=== PATIENT | female | born 1950 | race Caucasian/White ===

== ENCOUNTER 2021-10-06 08:11 | Outpatient (CLI) | payer MEDICARE, BC, SELFPAY ==
[2021-10-06 10:04] LABS: Iron* 52 ug/dL (37-170)
[2021-10-06 10:05] LABS: Chloride* 95 mmol/L (96-114)
[2021-10-06 10:06] LABS: Albumin* 4.2 g/dL (3.3-5.0); Potassium* 4.1 mmol/L (3.6-5.1); Sodium* 127 mmol/L (135-149)
[2021-10-06 10:08] LABS: Carbon Dioxide* 24 mmol/L (20-32); Creatinine* 7.2 mg/dL (0.5-1.5)
[2021-10-06 10:09] LABS: Blood Urea Nitrogen* 50 mg/dL (7-30); Calcium* 9.6 mg/dL (8.4-10.6); Glucose* 104 mg/dL (60-115); Phosphorus* 4.2 mg/dL (2.5-4.5)
[2021-10-06 10:14] LABS: Percent Iron Saturation 17 % (20-50); Total Iron Binding Capacity 309 ug/dL (265-497)
[2021-10-06 10:16] LABS: Creatinine Urine 57.3 mg/dL
[2021-10-06 10:25] LABS: Uric Acid* 6.6 mg/dL (2.2-8.4)
[2021-10-06 12:52] LABS: Microalbumin Creatinine Ratio 1110 mg/g (0-30); Microalbumin Urine 64 mg/dL
[2021-10-06 14:42] LABS: Ferritin* 86.7 ng/mL (11.1-264.0)
== END 2021-10-06 08:12 | disposition home or self-care (01) ==
PROVIDERS: Visit Provider Internal Medicine Nephrology
DX: N18.5 Chronic kidney disease, stage 5 (principal); D64.9 Anemia, unspecified; I10 Essential (primary) hypertension
CPT/HCPCS: 80069; 82043; 82310; 82570; 82728; 83540; 83550; 83970; 84550; 87086

== ENCOUNTER 2021-10-16 14:39 | Observation (INO) | payer MEDICARE, BC, SELFPAY ==
[2021-10-16] VITALS (9 sets, daily range): BP systolic 106–138; BP diastolic 60–80; PULSE 60–94; RESP 18–20; TEMP 36.2–36.6; O2SAT 91–95; BMI 23.7; BMI 23.8
--- NOTE | 2021-10-16 15:57 | CRLHL7_ITS ---
For Patients: As a result of the Cures Act, medical imaging exams and procedure reports are released immediately into your electronic medical record. You may view this report before your referring provider. If you have questions, please contact your health care provider. INDICATION: Edema, renal failure. TECHNIQUE: Chest 1 views. COMPARISON: January 02, 2021. FINDINGS: Cardiovascular and mediastinum: Heart size and vasculature are normal in caliber and appearance. Lungs and pleural spaces: Lungs are clear. No sign of pleural effusion. No pneumothorax. Bones and soft tissues: No significant findings. IMPRESSION: No acute findings and no significant changes from the prior exam. Dictated by Mehul Chiu MD @ 10/16/2021 4:50:11 PM (Electronically Signed)
--- NOTE | 2021-10-16 16:13 | ED.SOB ---
HPI - SOB/Dyspnea General Time Seen by Provider: 16:13 Date Seen: 10/16/21 Chief Complaint: Unspecified Complaint, Adult Stated Complaint: Kidneys are failing Time Seen by Provider: 10/16/21 15:54 Source: patient, family (Sister is present), RN notes reviewed and other (Note sent from Dr. Haro) Mode of arrival: ambulatory Limitations: no limitations History of Present Illness HPI Narrative: This 71-year-old female is coming into the ER feeling weak and fatigued, short of breath, lower extremity swelling in the setting of chronic kidney disease. She started metolazone last Tuesday on top of her Lasix. She took it Tuesday and Tuesday of this week but by Tuesday she developed a rash and was itchy. She has not taken another dose and this itchiness and rash is gone away. Dr. Haro her bus assistant has labeled this in allergy. 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 She did not respond to this treatment and her renal function is failed to deteriorate. He did see her last week and felt her to be quite volume overloaded and did initiate the metolazone for that reason. The patient sounded like she was breathless to him he wanted her evaluated. She notably is also the primary care provider for a frail that she lives with. He is worried that she may need to start dialysis. MD elicited complaint: shortness of breath and cough (Primarily dry) Pertinent past history: other (Chronic kidney disease) Onset (ago): day(s) Timing: progressively worsening Related Data Home oxygen amount: none Home Medications Medication Instructions Recorded Confirmed amlodipine 5 mg tablet mg PO DAILY 09/30/21 09/30/21 carvedilol 12.5 mg tablet mg PO BID 09/30/21 09/30/21 clonidine HCl 0.1 mg tablet mg PO .Bedtime 09/30/21 09/30/21 furosemide 20 mg tablet mg PO DAILY 09/30/21 09/30/21 albuterol sulfate 90 mcg/actuation 2 inh INHALATION BID ea 10/06/21 10/06/21 breath activated powder inhaler Allergies Allergy/AdvReac Type Severity Reaction Status Date / Time sevelamer Allergy Intermediate Rash Verified 09/30/21 15:37 latex Allergy Mild Rash Verified 09/30/21 15:37 Review of Systems Status of ROS: Reports: 10 or more systems reviewed and unremarkable except as noted in History and below [facility] Medical History (Updated 10/16/21 @ 18:07 by Deepti Ramirez MD) CKD (chronic kidney disease) Hypertension Surgical History (Updated 10/16/21 @ 16:42 by Zehra Doshi RN) History of cholecystectomy History of tonsillectomy Social History Smoking Status: Former smoker How often do you have a drink containing alcohol: never AUDIT-C Alcohol total score: 0 Non-prescribed substance use: denies use Exam Const: Vital Signs, click to edit/add: Vital Signs - 24 hr 10/16/21 14:56 10/16/21 16:43 10/16/21 17:00 Temperature 97.2 F L Pulse Rate [Right Pulse Oximeter] 94 61 Respiratory Rate 20 20 Blood Pressure [Ri ght Upper Arm] 130/75 124/69 132/80 Pulse Oximetry 94 93 92 10/16/21 17:30 Temperature Pulse Rate [Right Pulse Oximeter] 65 Respiratory Rate Blood Pressure [Ri ght Upper Arm] 138/70 Pulse Oximetry 92 Documenting provider has reviewed patient's vital signs: yes Common normals: no apparent distress, average body habitus, oriented x3, no limitations, healthy appearing and alert General appearance: cooperative and comfortable Nutritional appearance: thin Orientation/consciousness: Yes awake HENMT: Common normals: normocephalic, head/scalp atraumatic, hearing grossly normal bilaterally, external ears normal, external nose normal, nasal mucous membranes and turbinates normal, moist oral mucous membranes and oropharynx normal Head and scalp: normocephalic and atraumatic Nose: external nose normal and nasal mucous membranes and turbinates normal External ear: external ears normal Eye: Common normals: PERRL, EOMs intact bilaterally, conjunctivae normal and no scleral icterus Conjunctiva: conjunctiva(e) normal Pupil: PERRL Neck & C-Spine: Common normals: full ROM, no lymphadenopathy, supple and thyroid normal Thyroid: thyroid normal Resp: Common normals: normal respiratory effort, no retractions and no use of accessory muscles Effort & inspection: able to speak in complete sentences Auscultation: crackles (Right base) and rhonchi ([place] right mid lung field) Cardio: Common normals: regular rate, regular rhythm, S1 normal heart sound, S2 normal heart sound, no gallops, no clicks and no murmurs Rate: regular rate Rhythm: regular rhythm Heart sounds: S1 normal and S2 normal GI: Common normals: Normal to inspection, nondistended, normoactive bowel sounds present, soft to palpation, non-tender, no hepatosplenomegaly and no masses Palpation: soft and no hepatosplenomegaly Extremity: General: edema (Definite bilateral pedal edema, mild 1 to 2+ pretibial about midway tibia) Neuro: Common normals: oriented x3 Sensorium/orientation: awake and alert Course Consultations Consultation #1: Spoke with Dr. Haro regarding patient's labs. He recommended that we get a urine osmolality and a random urine sodium to help decipher whether or not her kidneys are perceiving her being dry or not. He did recommend that we could probably do a 500 mL bolus of D5 half-normal saline with 20 mEq potassium over 4 hours. He felt she would likely respond IV Lasix if we did need to this. With her sodium and potassium being low though, it would seem that the metolazone did work and she has had electrolyte changes from this. I have subsequently spoken to our hospitalist who will be assuming care. I do have an EKG pending. She may also need some oral effervescent potassium. Will talk to the hospitalists when she is down here. Time: 17:32 Vital Signs Vital signs: Initial Vital Signs Temperature 97.2 F L 10/16/21 14:56 Temperature Source Temporal Artery Scan 10/16/21 14:56 Pulse Rate 94 10/16/21 14:56 Respiratory Rate 20 10/16/21 14:56 Blood Pressure 130/75 10/16/21 14:56 Blood Pressure Mean 93 10/16/21 14:56 Blood Pressure Position Sitting 10/16/21 14:56 Pulse Oximetry 94 10/16/21 14:56 Oxygen Delivery Method 10/16/21 14:56 Vital Signs Temperature 97.2 F L 10/16/21 14:56 Pulse Rate 94 10/16/21 14:56 Respiratory Rate 20 10/16/21 14:56 Blood Pressure 130/75 10/16/21 14:56 Pulse Oximetry 94 10/16/21 14:56 Temperature 97.2 F L 10/16/21 14:56 Pulse Rate 65 10/16/21 17:30 Respiratory Rate 20 10/16/21 16:43 Blood Pressure 138/70 10/16/21 17:30 Pulse Oximetry 92 10/16/21 17:30 MDM - SOB/Dyspnea Lab Data Attestation: I reviewed the patient's lab results. Labs: Lab Results 10/16/21 10/16/21 10/16/21 Range/Units 15:57 16:26 16:26 WBC 5.60 (4.50-11.00) K/uL RBC 3.40 L (4.00-5.20) m/uL Hgb 10.6 L (12.0-16.0) gm/dL Hct 28.8 L (33.0-51.0) % MCV 85 (80-100) fL MCH 31 (26-34) pg MCHC 37 H (32-36) gm/dL RDW Coeff of [place] 11.4 L (11.5-15.5) % Plt Count 296 (140-440) K/uL Neut % (Auto) 70.7 (42.0-72.0) % Lymph % (Auto) 14.8 L (20-44) % [place] % (Auto) 10.7 (0.0-11.0) % Eos % (Auto) 3.2 (0.0-7.0) % Baso % (Auto) 0.4 (0.0-3.0) % Neut # (Auto) 3.96 (1.7-7.0) K/uL Lymph # (Auto) 0.80 L (0.90-2.90) K/uL [place] # (Auto) 0.60 (0.00-0.90) K/UL Eos # (Auto) 0.18 (0.00-0.50) K/uL Baso # (Auto) 0.02 (0.00-0.30) K/uL Abs Immat Gran (auto) 0.01 (0.00-0.30) K/uL Sodium 115 L* (135-149) mmol/L Potassium 2.9 L* (3.6-5.1) mmol/L Chloride 78 L (96-114) mmol/L Carbon Dioxide 26 (20-32) mmol/L BUN 59 H (7-30) mg/dL Creatinine 7.5 H (0.5-1.5) mg/dL Estimated Creat Clear 5.61 Estimated GFR 5 ml/min Glucose 111 (60-115) mg/dL Calcium 9.1 (8.4-10.6) mg/dL Phosphorus 5.0 H (2.5-4.5) mg/dL Magnesium 4.1 H* (1.5-2.6) mg/dL Total Bilirubin 0.6 (0.1-1.5) mg/dL AST 26 (12-35) U/L ALT 15 (4-35) U/L Alkaline Phosphatase 145 (40-150) U/L Troponin I 0.01 (0.01-0.04) ng/mL NT-Pro-B Natriuret Pep 3950 H (0-125) PG/mL Total Protein 7.5 (6.0-8.3) g/dL Albumin 4.3 (3.3-5.0) g/dL SARS-CoV-2 (PCR) Negative SARS-CoV-2 (Negative) Imaging Data Chest x-ray: Attestation: I have reviewed the pertinent imaging results. My impression: My preliminary review of her portable chest x-ray reveals no acute pulmonary congestion. Radiologist's impression: Patient: [facility] Facility:?[facility] Patient ID:?[id number] Site Patient ID:?[id number]. Site :?[id number] Study:?XRay Chest PORTABLE-10/16/2021 4:16:12 PM Ordering Physician:Ge Tatum Final Report: INDICATION: Edema, renal failure. TECHNIQUE: Chest 1 views. COMPARISON: January 02, 2021. FINDINGS: Cardiovascular and mediastinum: Heart size and vasculature are normal in caliber and appearance. Lungs and pleural spaces: Lungs are clear. No sign of pleural effusion. No pneumothorax. Bones and soft tissues: No significant findings. IMPRESSION: No acute findings and no significant changes from the prior exam. Dictated by Mehul Chiu MD @ 10/16/2021 4:50:11 PM (Electronic Signature) ECG Data Attestation: I personally reviewed and interpreted this ECG as follows: (Sinus rhythm, 63 beats per minute. Premature supraventricular complexes. There is significant artifact baseline on this EKG. QT corrected is 534 milliseconds.) ECG interpretation date: 10/16/21 ECG interpretation time: 18:18 Core Measures Measure exclusions: not indicated Critical Care Time Critical Care Time Critical Care Time: No Discharge Plan Discharge Clinical Impression: Hypokalemia, Stage 5 chronic kidney disease, Hyponatremia Patient Disposition: Admitted As Inpatient Condition: Unchanged
[2021-10-16 16:37] LABS: Basophils Absolute Auto 0.02 K/uL (0.00-0.30); Basophils Percent Auto 0.4 % (0.0-3.0); Eosinophils Absolute Auto 0.18 K/uL (0.00-0.50); Eosinophils Percent Auto 3.2 % (0.0-7.0); Hematocrit 28.8 % (33.0-51.0); Hemoglobin* 10.6 gm/dL (12.0-16.0); Immature Granulocytes Abs Auto 0.01 K/uL (0.00-0.30); Lymphocytes Percent Auto 14.8 % (20-44); Mean Corpuscular HGB Conc 37 gm/dL (32-36); Mean Corpuscular Hemoglobin 31 pg (26-34); Mean Corpuscular Volume 85 fL (80-100); Monocytes Percent Auto 10.7 % (0.0-11.0); Neutrophils Absolute Auto 3.96 K/uL (1.7-7.0); Neutrophils Percent Auto 70.7 % (42.0-72.0); Platelet Count* 296 K/uL (140-440); RDW Coefficient of Variation % 11.4 % (11.5-15.5)
[2021-10-16 16:43] LABS: Slide Review Reflex No
[2021-10-16 16:47] LABS: Albumin* 4.3 g/dL (3.3-5.0); Chloride* 78 mmol/L (96-114)
[2021-10-16 16:49] LABS: Creatinine* 7.5 mg/dL (0.5-1.5); Est. Creatinine Clearance* 5.61; Estimated Glomerular Filt Rate 5 ml/min
[2021-10-16 16:50] LABS: Alanine Aminotransferase* 15 U/L (4-35); Alkaline Phosphatase* 145 U/L (40-150); Aspartate Amino Transferase* 26 U/L (12-35); Bilirubin Total* 0.6 mg/dL (0.1-1.5); Blood Urea Nitrogen* 59 mg/dL (7-30); Carbon Dioxide* 26 mmol/L (20-32); Glucose* 111 mg/dL (60-115); Total Protein* 7.5 g/dL (6.0-8.3)
[2021-10-16 16:51] LABS: Calcium* 9.1 mg/dL (8.4-10.6)
[2021-10-16 16:59] LABS: NT Pro B Type NatriureticPept* 3950 PG/mL (0-125)
[2021-10-16 17:02] LABS: Magnesium* 4.1 mg/dL (1.5-2.6); Troponin I* 0.01 ng/mL (0.01-0.04)
[2021-10-16 17:03] LABS: Potassium* 2.9 mmol/L (3.6-5.1); Sodium* 115 mmol/L (135-149)
--- NOTE | 2021-10-16 17:03 | ED.NURSE ---
Dr Lerma updated on critical sodium, potassium and magnesium results
[2021-10-16 17:32] LABS: SARS PCR* Negative SARS-CoV-2 (Negative)
--- NOTE | 2021-10-16 17:49 | P.IMHP_ITS ---
Hospitalist- H&P: HPI History of Present Illness Date Seen: 10/16/21 Chief complaint: Kidneys are failing Narrative: Gem Whitlock is a 71 year old female who presented to the ED with her sister for feeling poorly - progressive weakness and fatigue, in addition to dyspnea. Her past medical history is notable for stage 5 chronic kidney disease secondary to ANCA vasculitis. Her loft worker head is Dr. Haro from the [facility]. She saw him last week, and he added metolazone thrice weekly to her diuretic regimen. Upon starting the medication, she felt more itching of her lower extremities. She did not note any skin changes or rashes with itching. She also felt somewhat nauseous on this medication. She called Dr. Haro, who asked her to stop metolazone and to present to the ER for lab work. They have been discussing transition to dialysis as an outpatient. ER course and findings: - sodium of 115 (127 10 days ago) - potassium of 2.7 - creatinine of 7.5 (7.2 10 days ago) - elevated phosphorus and magnesium Dr. Lerma in the ED discussed the case with Dr. Haro, who recommends admitting the patient to the hospital and slowly hydrating her with close monitoring. An attempt was made to transfer patient to the [facility], but there unfortunately on divert. In addition to ANCA vasculitis and stage 5 chronic kidney disease, patient also has hypertension. Her PCP Dr. Mason at [facility] ([facility]). Has had tonsillectomy and cholecystectomy. 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 Retired. 2 adult daughters. Former smoker, quit within the year, does still occasionally smoke when under stress. No ETOH use. Review of Systems Status of ROS: Reports: 10 or more systems reviewed and unremarkable except as noted in History and below Narrative: Fatigued, decreased appetite over the past week. Intermittent dizzines. No syncope or falls. No headache. No skin changes at this time (no notable rash when skin was itching while on Metolazone). No urinary complaints, makes urine. No melena or GI complaints. Last colonoscopy was in 2020. [facility] Medical History (Updated 10/16/21 @ 18:07 by Deepti Ramirez MD) CKD (chronic kidney disease) Hypertension Surgical History (Updated 10/16/21 @ 16:42 by Zehra Doshi RN) History of cholecystectomy History of tonsillectomy Social History Smoking Status: Former smoker How often do you have a drink containing alcohol: never AUDIT-C Alcohol total score: 0 Non-prescribed substance use: denies use Caffeine: Yes service: No Meds Home Medications and Allergies Home Medications Medication Instructions Recorded Confirmed Type amlodipine 5 mg tablet mg PO DAILY 09/30/21 09/30/21 History carvedilol 12.5 mg tablet mg PO BID 09/30/21 09/30/21 History clonidine HCl 0.1 mg tablet mg PO .Bedtime 09/30/21 09/30/21 History furosemide 20 mg tablet mg PO DAILY 09/30/21 09/30/21 History albuterol sulfate 90 mcg/actuation 2 inh INHALATION BID ea 10/06/21 10/06/21 History breath activated powder inhaler Allergies Allergy/AdvReac Type Severity Reaction Status Date / Time sevelamer Allergy Intermediate Rash Verified 09/30/21 15:37 latex Allergy Mild Rash Verified 09/30/21 15:37 Exam Narrative: Exam Narrative: GEN: Alert and oriented, answering questions appropriately HEENT: Normal external ears, EOMIs bilaterally, no scleral icterus, mild conjunctival pallor CV: RRR, No concerning murmurs, rubs, or gallops R: LCTA bilaterally without concerning wheezing. Fine bibasilar rales, air movement adequate Ext: wwp, 2+ nonpitting edema bilateral ankles (baseline per patient) Skin: No concerning skin lesions or rashes on exposed skin Neuro: Nonfocal, no resting tremor Psych: Appropriate Const: Vital Signs, click to edit/add: Vital Signs - 24 hr 10/16/21 14:56 10/16/21 16:43 10/16/21 17:00 Temperature 97.2 F L Pulse Rate [Right Pulse Oximeter] 94 61 Respiratory Rate 20 20 Blood Pressure [Ri ght Upper Arm] 130/75 124/69 132/80 Pulse Oximetry 94 93 92 10/16/21 17:30 Temperature Pulse Rate [Right Pulse Oximeter] 65 Respiratory Rate Blood Pressure [Ri ght Upper Arm] 138/70 Pulse Oximetry 92 Hospitalist - H&P: Result Labs Labs: Short CBC 10/16/21 Range/Units 16:26 WBC 5.60 (4.50-11.00) K/uL Hgb 10.6 L (12.0-16.0) gm/dL Hct 28.8 L (33.0-51.0) % Plt Count 296 (140-440) K/uL BMP 10/16/21 16:26 Sodium 115 L* Potassium 2.9 L* Chloride 78 L Carbon Dioxide 26 BUN 59 H Creatinine 7.5 H Glucose 111 Calcium 9.1 Cardiac Enzymes 10/16/21 Range/Units 16:26 Troponin I 0.01 (0.01-0.04) ng/mL Liver Function 10/16/21 Range/Units 16:26 Total Bilirubin 0.6 (0.1-1.5) mg/dL AST 26 (12-35) U/L ALT 15 (4-35) U/L Alkaline Phosphatase 145 (40-150) U/L Albumin 4.3 (3.3-5.0) g/dL Assessment and Plan Assessment and plan (1) Stage 5 chronic kidney disease: Status: Acute (2) Hypertension: Status: Acute (3) Anemia: Status: Acute (4) Hyponatremia: Status: Acute (5) Hypokalemia: Status: Acute (6) Hyperphosphatemia: Status: Acute Plan 71-year-old female with known stage 5 chronic kidney disease, now presents with severe electrolyte abnormalities (presumably iatrogenic from metolazone). Admit to CCU on telemetry. 1. Electrolyte disturbances, severe: Unable to transfer patient to [facility] given lack of bed availability. Per [facility] Specialist Field Engineer, will give 500mL of D5 1/2 NS + 20MeQ of K over 4 hours. Urine Osm and Na pending. Fluid restriction, supplemental sodium tabs, Q4H sodium monitoring overnight. Supplement potassium orally. 2. SHILOH in patient with history of CKD: Continue home medications, follow renal function closely. Patient hopeful that she will be able to discharge home tomorrow with close outpatient f/u, as she is the primary caregiver for her . 3. HTN: Continue home medications. 4. Prophylaxis: SCDs, ambulation. 5. Patient requests Full Code status.
--- NOTE | 2021-10-16 18:15 | W.PC.EDHO ---
Primary Language: Preferred Language: Orientation Status: [x] Alert & Oriented [] Slight Confusion [] Known Dx Dementia Transfers By: x Assist of 1 [] Assist of 2 [] Lift Description of Symptoms ED Triage Present Problem pt referred to ER by Dr Haro for her kidneys, Description pt has been feeling more fatigued with blood pressures being low at times, pt stopped metalozone she is supposed to be taking because she developed hive Female History Patient No Oxygen Administration Pulse Oximetry 92 Pulse Oximetry 92 Pulse Oximetry 93 Pulse Oximetry 94 Oxygen Delivery Method Room Air Oxygen Delivery Method Room Air Oxygen Delivery Method Room Air Oxygen Delivery Method Room Air Cardiac Monitoring EKG Method 12 Lead
[2021-10-16 18:20] LABS: Appearance Urine Clear (Clear); Bilirubin Urine Negative (Negative); Blood Urine 2+ (Negative); Color Urine Yellow (Yellow); Glucose Urine Negative (Negative); Ketones Urine Negative (Negative); Specific Gravity Urine 1.015 (1.000-1.030)
[2021-10-16 18:21] LABS: Leukocyte Esterase Urine Negative (Negative); Nitrite Urine Negative (Negative); Protein Urine 2+ (Negative); Urobilinogen Urine 0.2 (0.2-1.0)
[2021-10-16 18:29] LABS: WBC Urine 0-2 (0-5)
--- NOTE | 2021-10-16 18:33 | ED.NURSE ---
report given to Kar Almodovar RN seismic prospecting supervisor transferred pt to med surg.
[2021-10-16] MEDS: POTASSIUM BICARB 25 MEQ EFFERVESCENT TAB PO ×3 (19:48→22:13)
[2021-10-16] MEDS: cloNIDine HCL 0.1 MG TABLET PO (21:00)
[2021-10-16] MEDS: carvediloL 25 MG TABLET PO (21:00)
[2021-10-16] MEDS: SODIUM CHLORIDE 1 GM TABLET PO (21:01)
[2021-10-16] MEDS: ALBUTEROL INHALER 2 PUFF IH (21:05)
[2021-10-16 22:26] LABS: Potassium* 3.6 mmol/L (3.6-5.1)
[2021-10-16 23:02] LABS: Sodium* 115 mmol/L (135-149)
[2021-10-17] VITALS (10 sets, daily range): BP systolic 113–131; BP diastolic 59–77; PULSE 59–68; RESP 16–22; TEMP 36.1–36.9; O2SAT 91–95
--- NOTE | 2021-10-17 05:53 | PC.NURSE ---
SHIFT NOTE -: Pt A&O, cooperative. Afebrile, oxygen saturations in the low 90's on room air. Reports SOB with exertion that pt states is improved and better at rest. Denies pain, chest pain, and N/V. Up SBA, denies dizziness, reports her weakness is better. Tele reads NSR. Sodium repeat check was 115, Dr. Ledesma aware, no new orders received.
[2021-10-17 07:48] LABS: Basophils Absolute Auto 0.03 K/uL (0.00-0.30); Basophils Percent Auto 0.6 % (0.0-3.0); Eosinophils Absolute Auto 0.22 K/uL (0.00-0.50); Eosinophils Percent Auto 4.1 % (0.0-7.0); Hematocrit 26.1 % (33.0-51.0); Hemoglobin* 9.6 gm/dL (12.0-16.0); Lymphocytes Percent Auto 19.8 % (20-44); Mean Corpuscular HGB Conc 37 gm/dL (32-36); Mean Corpuscular Hemoglobin 32 pg (26-34); Mean Corpuscular Volume 86 fL (80-100); Monocytes Percent Auto 11.9 % (0.0-11.0); Neutrophils Absolute Auto 3.44 K/uL (1.7-7.0); Neutrophils Percent Auto 63.6 % (42.0-72.0); Platelet Count* 283 K/uL (140-440); RDW Coefficient of Variation % 11.4 % (11.5-15.5); Red Blood Count 3.03 m/uL (4.00-5.20)
[2021-10-17 07:53] LABS: Slide Review Reflex No
[2021-10-17 07:58] LABS: Chloride* 82 mmol/L (96-114)
[2021-10-17 07:59] LABS: Potassium* 3.1 mmol/L (3.6-5.1)
[2021-10-17 08:01] LABS: Blood Urea Nitrogen* 60 mg/dL (7-30); Creatinine* 7.1 mg/dL (0.5-1.5); Est. Creatinine Clearance* 5.92; Estimated Glomerular Filt Rate 6 ml/min; Glucose* 90 mg/dL (60-115)
[2021-10-17 08:02] LABS: Calcium* 8.6 mg/dL (8.4-10.6); Magnesium* 3.8 mg/dL (1.5-2.6); Phosphorus* 4.1 mg/dL (2.5-4.5)
[2021-10-17 08:05] LABS: Carbon Dioxide* 28 mmol/L (20-32)
[2021-10-17 08:15] LABS: Sodium* 118 mmol/L (135-149)
--- NOTE | 2021-10-17 08:44 | P.IMPN_ITS ---
Progress Note: A&P Assessment and plan (1) Hyponatremia: Status: Acute Assessment and Plan: Na was 127 earlier this month, 115 yesterday, 118 today. Patient feels better and desires discharge home. She is agreeable to stay if recommended. I will speak with [facility] to discuss plan. I think she may need dialysis sooner since she has failed diuresis due to hyponatremia and has ongoing volume overload. Continue free water restriction as patient does at home. Monitor I/O's, but I will not put in an actual order for fluid restriction because I'd like to see how well she is restricting her own intake. (2) Hypokalemia: Status: Acute Assessment and Plan: Considering advanced renal disease, I will give one dose of postassium for repl acement and recheck before giving more. (3) Hyperphosphatemia: Problem details: secondary to renal disease Status: Acute (4) Hypertension: Status: Acute Assessment and Plan: Fair control for age. Monitor. 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 Haro/[facility], dialysis planning started 10/09/21 Status: Acute Assessment and Plan: Renal diet. Daily BMP while adjusting electrolyte and volume infusion. (6) Volume overload: Problem details: suspected CHF, has not yet had ECHO, treated with metolazone and furosemide, low NA diet, avoiding NSAIDs Status: Acute Assessment and Plan: Obtain ECHO. Discuss case with Nephrology to consider sooner dialysis. (7) Anemia in chronic kidney disease (CKD): Problem details: Baseline Hgb is 10.6. Has been lower in the past. Status: Acute Assessment and Plan: likely lower due to volume overload. No evidence of active bleeding. Continue to monitor. (8) Hyperparathyroidism, secondary renal: Status: Acute Plan VTE prophylaxis with frequent ambulation. Subjective Time Seen by Provider: 08:36 Date Seen: 10/17/21 Interval history: Gem says that she had started conversations with Dr. Haro this month about the possibility of future outpatient hemodialysis. There was no date set for this to start. She was recently started on metolazone. Sometime after that she started having decreased appetite and worsening weakness. Gem tells me she feels much better today. Her appetite has improved and she ate a good breakfast this morning. She continues to have the usual amount of urine output according to her. She had a normal bowel movement this morning. Exam Narrative: Exam Narrative: General: No acute distress. Awake, alert, oriented x3. Mild pallor. No jaundice. Oropharynx: Clear. Mucous membranes moist. Cardiovascular: Regular rate and rhythm. No murmurs, gallops, or rubs. Respiratory: Bibasilar crackles. No wheezing. Abdomen: Bowel sounds present. Soft, nondistended, nontender. Extremities: 2+ bilateral pitting edema of both lower extremities. Const: Vital Signs, click to edit/add: Vital Signs - 24 hr 10/16/21 14:56 10/16/21 16:43 10/16/21 17:00 Temperature 97.2 F L Pulse Rate Pulse Rate [Left R adial] Pulse Rate [Right Pulse Oximeter] 94 61 Respiratory Rate 20 20 Blood Pressure [Ri ght Arm] Blood Pressure [Ri ght Upper Arm] 130/75 124/69 132/80 Pulse Oximetry 94 93 92 10/16/21 17:30 10/16/21 19:38 10/16/21 20:12 Temperature 97.8 F Pulse Rate Pulse Rate [Left R adial] Pulse Rate [Right Pulse Oximeter] 65 Respiratory Rate 18 18 Blood Pressure [Ri ght Arm] 128/71 Blood Pressure [Ri ght Upper Arm] 138/70 Pulse Oximetry 92 94 95 10/16/21 23:00 10/16/21 23:25 10/16/21 23:35 Temperature 97.9 F Pulse Rate 60 Pulse Rate [Left R adial] 60 Pulse Rate [Right Pulse Oximeter] Respiratory Rate 18 18 Blood Pressure [Ri ght Arm] 106/60 Blood Pressure [Ri ght Upper Arm] Pulse Oximetry 91 91 10/17/21 03:30 10/17/21 03:36 10/17/21 08:14 Temperature 97.7 F Pulse Rate Pulse Rate [Left R adial] 60 60 61 Pulse Rate [Right Pulse Oximeter] Respiratory Rate 22 22 20 Blood Pressure [Ri ght Arm] 113/59 L Blood Pressure [Ri ght Upper Arm] Pulse Oximetry 91 10/17/21 08:22 Temperature 97.6 F Pulse Rate Pulse Rate [Left R adial] 61 Pulse Rate [Right Pulse Oximeter] Respiratory Rate 20 Blood Pressure [Ri ght Arm] 130/66 Blood Pressure [Ri t Upper Arm] Pulse Oximetry 91 Labs Labs: Laboratory Results - last 24 hr 10/16/21 10/16/21 10/16/21 15:57 16:26 16:26 WBC 5.60 RBC 3.40 L Hgb 10.6 L Hct 28.8 L MCV 85 MCH 31 MCHC 37 H RDW Coeff of Scott 11.4 L Plt Count 296 Neut % (Auto) 70.7 Lymph % (Auto) 14.8 L [place] % (Auto) 10.7 Eos % (Auto) 3.2 Baso % (Auto) 0.4 Neut # (Auto) 3.96 Lymph # (Auto) 0.80 L [place] # (Auto) 0.60 Eos # (Auto) 0.18 Baso # (Auto) 0.02 Abs Immat Gran (auto) 0.01 Sodium 115 L* Potassium 2.9 L* Chloride 78 L Carbon Dioxide 26 BUN 59 H Creatinine 7.5 H Estimated Creat Clear 5.61 Estimated GFR 5 Glucose 111 Calcium 9.1 Phosphorus 5.0 H Magnesium 4.1 H* Total Bilirubin 0.6 AST 26 ALT 15 Alkaline Phosphatase 145 Troponin I 0.01 NT-Pro-B Natriuret Pep 3950 H Total Protein 7.5 Albumin 4.3 Urine Color Urine Appearance Urine pH Ur Specific [place] Urine Protein Urine Glucose (UA) Urine Ketones Urine Blood Urine Nitrite Urine Bilirubin Urine Urobilinogen Ur Leukocyte Esterase Urine RBC Urine WBC Urine WBC Clumps Ur Squamous Epith Cells Urine Bacteria SARS-CoV-2 (PCR) Negative SARS-CoV-2 10/16/21 10/16/21 10/17/21 17:30 22:06 06:54 WBC RBC Hgb Hct MCV MCH MCHC RDW Coeff of Scott Plt Count Neut % (Auto) Lymph % (Auto) [place] % (Auto) Eos % (Auto) Baso % (Auto) Neut # (Auto) Lymph # (Auto) [place] # (Auto) Eos # (Auto) Baso # (Auto) Abs Immat Gran (auto) Sodium 115 L* 118 L* Potassium 3.6 3.1 L Chloride 82 L Carbon Dioxide 28 BUN 60 H Creatinine 7.1 H Estimated Creat Clear 5.92 Estimated GFR 6 Glucose 90 Calcium 8.6 Phosphorus 4.1 Magnesium 3.8 H Total Bilirubin AST ALT Alkaline Phosphatase Troponin I NT-Pro-B Natriuret Pep Total Protein Albumin Urine Color Yellow Urine Appearance Clear Urine pH 7.0 Ur Specific [place] 1.015 Urine Protein 2+ A Urine Glucose (UA) Negative Urine Ketones Negative Urine Blood 2+ A Urine Nitrite Negative Urine Bilirubin Negative Urine Urobilinogen 0.2 Ur Leukocyte Esterase Negative Urine RBC 2-5 A Urine WBC 0-2 Urine WBC Clumps None Ur Squamous Epith Cells None Urine Bacteria None SARS-CoV-2 (PCR) 10/17/21 06:54 WBC 5.40 RBC 3.03 L Hgb 9.6 L Hct 26.1 L MCV 86 MCH 32 MCHC 37 H RDW Coeff of Scott 11.4 L Plt Count 283 Neut % (Auto) 63.6 Lymph % (Auto) 19.8 L [place] % (Auto) 11.9 H Eos % (Auto) 4.1 Baso % (Auto) 0.6 Neut # (Auto) 3.44 Lymph # (Auto) 1.10 [place] # (Auto) 0.60 Eos # (Auto) 0.22 Baso # (Auto) 0.03 Abs Immat Gran (auto) 0.00 Sodium Potassium Chloride Carbon Dioxide BUN Creatinine Estimated Creat Clear Estimated GFR Glucose Calcium Phosphorus Magnesium Total Bilirubin AST ALT Alkaline Phosphatase Troponin I NT-Pro-B Natriuret Pep Total Protein Albumin Urine Color Urine Appearance Urine pH Ur Specific [place] Urine Protein Urine Glucose (UA) Urine Ketones Urine Blood Urine Nitrite Urine Bilirubin Urine Urobilinogen Ur Leukocyte Esterase Urine RBC Urine WBC Urine WBC Clumps Ur Squamous Epith Cells Urine Bacteria SARS-CoV-2 (PCR)
--- NOTE | 2021-10-17 08:51 | PC.NURSE ---
Critical value reported by lab - Sodium 118, Dr. Aquino notified.
[2021-10-17] MEDS: SODIUM CHLORIDE 1 GM TABLET PO ×3 (09:17→17:34)
[2021-10-17] MEDS: carvediloL 25 MG TABLET PO ×2 (09:17→21:22)
[2021-10-17] MEDS: AMLODIPINE 5 MG TABLET PO (09:17)
[2021-10-17] MEDS: POTASSIUM BICARB 25 MEQ EFFERVESCENT TAB PO (09:19)
[2021-10-17] MEDS: ALBUTEROL INHALER 2 PUFF IH ×2 (09:19→21:23)
--- NOTE | 2021-10-17 10:13 | CRLHL7_ITS ---
For Patients: As a result of the Cures Act, medical imaging exams and procedure reports are released immediately into your electronic medical record. You may view this report before your referring provider. If you have questions, please contact your health care provider. INDICATION: bibasilar crackles INDICATION: [Bibasilar crackles.] TECHNIQUE: Chest 1 view. COMPARISON: [Chest radiograph 09/16/2021.] FINDINGS: The cardiomediastinal silhouette size is [normal]. There is no focal pulmonary opacity, pleural effusion or pneumothorax. [The visualized osseous structures are unremarkable for age]. Impression: [No acute cardiopulmonary abnormality.] Dictated by: Bess Prieto MD @ 10/17/2021 11:27:31 (Electronically Signed)
[2021-10-17 10:40] LABS: Chloride* 82 mmol/L (96-114)
[2021-10-17 10:41] LABS: Potassium* 3.6 mmol/L (3.6-5.1)
[2021-10-17 10:43] LABS: Carbon Dioxide* 28 mmol/L (20-32); Creatinine* 7.2 mg/dL (0.5-1.5); Est. Creatinine Clearance* 5.84; Estimated Glomerular Filt Rate 6 ml/min
[2021-10-17 10:44] LABS: Blood Urea Nitrogen* 62 mg/dL (7-30); Calcium* 8.6 mg/dL (8.4-10.6); Glucose* 109 mg/dL (60-115)
[2021-10-17 10:50] LABS: Sodium* 118 mmol/L (135-149)
--- NOTE | 2021-10-17 11:34 | PC.NURSE ---
Repeat Sodium 118, Dr. Aquino notified.
[2021-10-17 13:03] LABS: Chloride* 80 mmol/L (96-114)
[2021-10-17 13:04] LABS: Potassium* 4.3 mmol/L (3.6-5.1)
[2021-10-17 13:07] LABS: Carbon Dioxide* 28 mmol/L (20-32)
[2021-10-17 13:14] LABS: Sodium* 119 mmol/L (135-149)
--- NOTE | 2021-10-17 13:15 | PC.NURSE ---
Critical value reported by lab - Sodium 119, Dr. Aquino notified.
[2021-10-17] MEDS: 0.9 % SODIUM CHLORIDE 500 ML 500 ML IV (16:05)
--- NOTE | 2021-10-17 17:19 | PC.NURSE ---
Pt had an echo, with result to Dr. Aquino. CXR portable earlier today. She denies pain, N/V or feeling tried as before admit. She resting either in bed or up in chair indep. with transfers. She was given a 500cc bolus and LS were clear. Awaiting AM labs and will reassess. Given Sodium tabs as ordered and pt is aware to limit fluid, she is not on a fluid rest.
[2021-10-17] MEDS: cloNIDine HCL 0.1 MG TABLET PO (21:22)
--- NOTE | 2021-10-17 23:04 | PC.NURSE ---
[id number]: Patient pleasant and cooperative. Afebrile. Denies pain. Denies N/V/dizziness. Independent in room.
[2021-10-18] VITALS (11 sets, daily range): BP systolic 91–127; BP diastolic 56–72; PULSE 61–85; RESP 16–20; TEMP 36.2–37.3; O2SAT 90–93
--- NOTE | 2021-10-18 04:10 | PC.NURSE ---
Shift note 23-07: Pt alert, up ad adina in room, denies any pain, offers no complaints.
[2021-10-18 06:34] LABS: Hemoglobin* 9.2 gm/dL (12.0-16.0)
[2021-10-18] MEDS: AMLODIPINE 5 MG TABLET PO (08:15)
[2021-10-18] MEDS: carvediloL 25 MG TABLET PO ×2 (08:16→20:37)
[2021-10-18] MEDS: SODIUM CHLORIDE 1 GM TABLET PO ×2 (08:16→10:25)
[2021-10-18] MEDS: ALBUTEROL INHALER 2 PUFF IH ×2 (08:20→20:37)
[2021-10-18 09:08] LABS: Chloride* 87 mmol/L (96-114); Potassium* 3.3 mmol/L (3.6-5.1)
[2021-10-18 09:11] LABS: Carbon Dioxide* 28 mmol/L (20-32); Creatinine* 6.8 mg/dL (0.5-1.5); Est. Creatinine Clearance* 6.19; Estimated Glomerular Filt Rate 6 ml/min
[2021-10-18 09:12] LABS: Blood Urea Nitrogen* 66 mg/dL (7-30); Calcium* 8.8 mg/dL (8.4-10.6); Glucose* 89 mg/dL (60-115)
[2021-10-18 09:14] LABS: Sodium* 121 mmol/L (135-149)
--- NOTE | 2021-10-18 09:24 | PC.NURSE ---
Critical value reported by lab - Sodium 121, Dr. Aquino notified.
--- NOTE | 2021-10-18 09:32 | PM.IMPN1 ---
Progress Note: A&P Assessment and plan (1) Hyponatremia: Status: Acute Assessment and Plan: Na was 127 earlier this month, 115 on admit, 119 yesterday, 121 today. Patient feels better than before admission. Continue I/O's. Patient restricting fluid herself along with a renal diet. No longer on IVF. Increase sodium tabs to 2 g TID. Appropriately slow increase in sodium to decrease risk of central pontine myelinolysis. Continue serial sodium checks. Anticipate able to discharge home when sodium reaches upper 120's. (2) Hypokalemia: Status: Acute Assessment and Plan: Replace potassium with one oral dose today and recheck in am. Keeping replacement dosing small due to advanced renal disease. (3) Hyperphosphatemia: Problem details: secondary to renal disease Status: Acute (4) Hypertension: Status: Acute Assessment and Plan: Good control for age. Monitor. 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 Haro/[place] [facility], dialysis planning started 10/09/21 Status: Acute Assessment and Plan: Renal diet. Daily BMP while replacing sodium and potassium. (6) Volume overload: Problem details: No physical evidence on ECHO of CHF, but may be diastolic. Failed treatment with metolazone and furosemide due to resultant hyponatremia. Advanced renal disease also contributing to volume overload. Status: Acute Assessment and Plan: No indication for emergent dialysis: not SOB, O2 sat 92%RA. Outpatient dialysis appointment on Oct 29. (7) Anemia in chronic kidney disease (CKD): Problem details: Baseline Hgb is 10.6. Has been lower in the past. Status: Acute Assessment and Plan: likely lower due to volume overload. No evidence of active bleeding. Hgb stable. (8) Hyperparathyroidism, secondary renal: Status: Acute Plan VTE prophylaxis with frequent ambulation. Subjective Time Seen by Provider: 09:20 Date Seen: 10/18/21 Interval history: Feels well. No complaints. She continues to have the usual amount of urine output according to her. She notes she has an appointment at [place] to start dialysis set up on Oct 29. Exam Narrative: Exam Narrative: General: No acute distress. Awake, alert, oriented x3. Mild pallor. No jaundice. Oropharynx: Clear. Mucous membranes moist. Cardiovascular: Regular rate and rhythm. No murmurs, gallops, or rubs. Respiratory: Bibasilar crackles. No wheezing. Abdomen: Bowel sounds present. Soft, nondistended, nontender. Extremities: 2+ bilateral pitting edema of both lower extremities. Const: Vital Signs, click to edit/add: Vital Signs - 24 hr 10/17/21 11:36 10/17/21 15:50 10/17/21 16:17 Temperature 97 F L 98.2 F Pulse Rate 63 Pulse Rate [Left R adial] 61 65 65 Respiratory Rate 16 18 18 Blood Pressure [Ri ght Arm] 113/63 127/71 Pulse Oximetry 94 95 10/17/21 19:00 10/17/21 23:00 10/18/21 00:00 Temperature 97.9 F 98.5 F Pulse Rate 65 Pulse Rate [Left R adial] 65 68 Respiratory Rate 18 18 Blood Pressure [Ri ght Arm] 128/77 131/66 Pulse Oximetry 94 94 10/18/21 03:00 10/18/21 08:30 10/18/21 08:31 Temperature 98.3 F 97.2 F L Pulse Rate Pulse Rate [Left R adial] 62 68 68 Respiratory Rate 18 20 20 Blood Pressure [Ri ght Arm] 122/63 122/68 Pulse Oximetry 93 92 Labs Labs: Laboratory Results - last 24 hr 10/17/21 10/17/21 10/18/21 10:12 12:43 06:09 Hgb 9.2 L Sodium 118 L* 119 L* Potassium 3.6 4.3 Chloride 82 L 80 L Carbon Dioxide 28 28 BUN 62 H Creatinine 7.2 H Estimated Creat Clear 5.84 Estimated GFR 6 Glucose 109 Calcium 8.6 10/18/21 06:09 Hgb Sodium 121 L* Potassium 3.3 L Chloride 87 L Carbon Dioxide 28 BUN 66 H Creatinine 6.8 H Estimated Creat Clear 6.19 Estimated GFR 6 Glucose 89 Calcium 8.8 Imaging Echo: Attestation: I have reviewed the pertinent imaging results. (Preliminary results available yesterday indicate normal LV function. Final read is pending.)
[2021-10-18] MEDS: POTASSIUM BICARB 25 MEQ EFFERVESCENT TAB PO (10:25)
[2021-10-18] MEDS: SODIUM CHLORIDE 1 GM TABLET 2 GM PO ×2 (12:11→17:28)
--- NOTE | 2021-10-18 18:08 | PC.NURSE ---
Pt b/p was 90-98/60-70 she denies lightheadedness. Pt denies pain or SOB. She had Sodium tabs with her sodium increased to 124 at 1600. Next lab is at 2200 and lab has been called.
[2021-10-18 18:40] LABS: Sodium* 124 mmol/L (135-149)
[2021-10-18] MEDS: cloNIDine HCL 0.1 MG TABLET PO (20:37)
[2021-10-18 21:27] LABS: Sodium* 126 mmol/L (135-149)
--- NOTE | 2021-10-19 02:14 | PC.NURSE ---
Shift note : Pt up ad adina in room, denies any pain. Sodium level last evening 126, hopes to DC home today.
[2021-10-19 03:00] VITALS: BP 134/86; PULSE 86; RESP 18; TEMP 36.9; O2SAT 92
[2021-10-19 07:00] VITALS: BP 128/64; PULSE 66; RESP 12; TEMP 36.7; O2SAT 96
[2021-10-19 07:27] LABS: Chloride* 94 mmol/L (96-114)
[2021-10-19 07:28] LABS: Potassium* 3.4 mmol/L (3.6-5.1); Sodium* 128 mmol/L (135-149)
[2021-10-19 07:30] LABS: Creatinine* 6.9 mg/dL (0.5-1.5); Estimated Glomerular Filt Rate 6 ml/min
[2021-10-19 07:31] LABS: Blood Urea Nitrogen* 72 mg/dL (7-30); Calcium* 8.8 mg/dL (8.4-10.6); Carbon Dioxide* 27 mmol/L (20-32); Glucose* 94 mg/dL (60-115)
[2021-10-19] MEDS: SODIUM CHLORIDE 1 GM TABLET 2 GM PO ×2 (08:24→11:30)
[2021-10-19] MEDS: AMLODIPINE 5 MG TABLET PO (08:59)
[2021-10-19] MEDS: ALBUTEROL INHALER 2 PUFF IH (09:00)
[2021-10-19] MEDS: carvediloL 25 MG TABLET PO (09:00)
[2021-10-19] MEDS: POTASSIUM BICARB 25 MEQ EFFERVESCENT TAB PO (10:13)
[2021-10-19 11:00] VITALS: BP 114/66; PULSE 61; RESP 24; TEMP 37.7; O2SAT 95
--- NOTE | 2021-10-19 11:45 | PM.DS1 ---
DS: Providers Provider Time Seen by Provider: 11:45 Date Seen: 10/19/21 Date of admission: 10/16/21 18:18 Primary care physician: Not a Local Provider Admitting Clinician: Susy Ledesma MD Consults: [place] [facility], Dr. Aly. Attending Physician on discharge: Susy Ledesma MD Date of Discharge: 10/19/21 DS: Diagnosis Discharge Diagnosis (1) Hyponatremia: Status: Acute Problem details: Suspect secondary to diuresis with furosemide and metalozone. (2) Volume overload: Status: Acute Problem details: No physical evidence on ECHO of CHF, but may be diastolic. Failed treatment with metolazone and furosemide due to resultant hyponatremia. Advanced renal disease also contributing to volume overload. (3) Stage 5 chronic kidney disease: Status: Chronic Problem details: secondary to renal vasculitis, last dose of Rituxan early 2020, sees Dr. Haro/[place] [facility], dialysis planning started 10/09/21, appt at [place] on Oct 29 to begin process for dyalysis. (4) Hypokalemia: Status: Acute (5) Anemia in chronic kidney disease (CKD): Status: Chronic Problem details: Baseline Hgb is 10.6. Has been lower in the past. (6) Hyperparathyroidism, secondary renal: Status: Chronic (7) Hyperphosphatemia: Status: Chronic Problem details: secondary to renal disease (8) Hypertension: Status: Acute DS: Summary Hospital Course Hospital Course: This is a 71-year-old female with history of stage IV renal disease that has recently advanced to stage 5 and she is making preparations with her trim setter to start outpatient dialysis. For volume overload she was started on furosemide and metolazone. She then developed weakness and was noted to have a sodium of 115. It was 127 just 2 weeks ago. [place] was contacted, but there were no beds available there and the trim setter recommended treatment with D5 half-normal saline and potassium. She was admitted to the hospital for hyponatremia and treated with of oral fluid restriction, sodium tablets and the IV fluids recommended above. Her diuretics were discontinued. Her sodium started to slowly rise, but she became mildly fluid overloaded. An echocardiogram was obtained and there is no evidence of systolic heart failure. Her oxygen saturation remained in the 90s on room air and shortness of breath remained unchanged. I spoke with the different [place] trim setter on 10/17/2021 who noted that there was no indication for emergent dialysis or urgent dialysis at this time. IV fluids were discontinued and she was given a small bolus of normal saline per the recommendation of the trim setter and tolerated that well. Despite that her sodium continued to rise only very slightly. He increased her salt tab dose yesterday and she has had good results from that. Her sodium today is 128 and she is feeling well, back to baseline. She is discharged home in stable condition. She has an appointment on October 29 at [place] to start the process of getting into outpatient dialysis. She will also follow-up with her primary care provider later this week with a sodium and potassium check. Note to primary care provider: Please consider discontinuing sodium tabs when you see her later this week if her sodium has returned to normal limits. Status at Discharge Functional status at discharge: independent ambulation Time Spent with Patient Time attestation: Total time spent providing and/or coordinating discharge services: Time spent: Less than 30 minutes Exam Narrative: Exam Narrative: General: No acute distress. Awake, alert, oriented. Mild pallor. No jaundice. Oropharynx: Clear. Mucous membranes moist. Cardiovascular: Regular rate and rhythm. No murmurs, gallops, or rubs. Respiratory: Bibasilar crackles. No wheezing. Abdomen: Bowel sounds present. Soft, nondistended, nontender. Extremities: 2+ bilateral pitting edema of both lower extremities. Const: Vital Signs, click to edit/add: Vital Signs - 24 hr 10/18/21 12:00 10/18/21 15:10 10/18/21 16:00 Temperature 98 F 98.2 F Pulse Rate Pulse Rate [Left R adial] 74 76 72 Respiratory Rate 18 18 20 Blood Pressure [Ri ght Arm] 91/56 L 112/72 Pulse Oximetry 90 92 10/18/21 18:00 10/18/21 20:30 10/18/21 23:00 Temperature 98.7 F 99.1 F Pulse Rate 71 Pulse Rate [Left R adial] 77 85 Respiratory Rate 16 18 Blood Pressure [Ri ght Arm] 123/71 127/72 Pulse Oximetry 92 93 10/19/21 03:00 10/19/21 07:00 10/19/21 11:00 Temperature 98.4 F 98.1 F 99.9 F H Pulse Rate Pulse Rate [Left R adial] 86 66 61 Respiratory Rate 18 12 24 Blood Pressure [Ri ght Arm] 134/86 128/64 114/66 Pulse Oximetry 92 96 95 DS: Data Data Completed and Pending Completed studies during hospitalization: Ordering Physician: Deepti Ramirez M.D. Date of Service: 10/16/21 Procedure(s): XR chest 1V portable Accession Number(s): [id number] cc: Provider,Not a Local ; Deepti Ramirez M.D.~ For Patients: As a result of the Cures Act, medical imaging exams and procedure reports are released immediately into your electronic medical record. You may view this report before your referring provider. If you have questions, please contact your health care provider. INDICATION: Edema, renal failure. TECHNIQUE: Chest 1 views. COMPARISON: January 02, 2021. FINDINGS: Cardiovascular and mediastinum: Heart size and vasculature are normal in caliber and appearance. Lungs and pleural spaces: Lungs are clear. No sign of pleural effusion. No pneumothorax. Bones and soft tissues: No significant findings. IMPRESSION: No acute findings and no significant changes from the prior exam. Dictated by Mehul Chiu MD @ 10/16/2021 4:50:11 PM (Electronically Signed) Echocardiogram 10/17/2021 Normal left ventricular size, normal wall thickness, hyperdynamic global systolic function, calculated EF 76%. Normal RV size and function. Aortic valve is trileaflet and sclerotic, no stenosis and no regurgitation. Normal LA filling pressure. Normal estimated pulmonary pressures by tricuspid regurgitation velocity and right atrial pressure (25 mm plus RAP). Inferior vena cava is normal size, respiratory size variation greater than 50%. 10/16/2021 EKG: Sinus rhythm with premature supraventricular complexes, 63 beats per minute, nonspecific ST and T-wave abnormality. Prolonged QT C 534 milliseconds. Ordering Physician: Coral Aqiuno MD Date of Service: 10/17/21 Procedure(s): XR chest 1V portable Accession Number(s): [id number] cc: Coral Aquino MD; Provider,Not a Local ~ For Patients: As a result of the Cures Act, medical imaging exams and procedure reports are released immediately into your electronic medical record. You may view this report before your referring provider. If you have questions, please contact your health care provider. INDICATION: bibasilar crackles INDICATION: Bibasilar crackles. TECHNIQUE: Chest 1 view. COMPARISON: Chest radiograph 09/16/2021. FINDINGS: The cardiomediastinal silhouette size is normal. There is no focal pulmonary opacity, pleural effusion or pneumothorax. The visualized osseous structures are unremarkable for age. Impression: No acute cardiopulmonary abnormality. Dictated by: Bess Prieto MD @ 10/17/2021 11:27:31 (Electronically Signed) Pending studies at discharge: For a FENA calculation, urine random creatinine and urine random sodium are still pending. Please note that at the time that was done, her serum osmolality was 257, which is low, and her serum sodium was 115. Labs on day of discharge: Labs from last 24 hours 10/19/21 10/18/21 10/18/21 06:55 21:10 16:17 Sodium 128 L 126 L 124 L* Potassium 3.4 L Chloride 94 L Carbon Dioxide 27 BUN 72 H Creatinine 6.9 H Estimated Creat Clear 6.10 Estimated GFR 6 Glucose 94 Serum Osmolality Calcium 8.8 10/16/21 16:26 Sodium Potassium Chloride Carbon Dioxide BUN Creatinine Estimated Creat Clear Estimated GFR Glucose Serum Osmolality 257 L Calcium Discharge Plan Discharge Disposition: Home, Self-Care Date of Admission: 10/16/21 18:18 Attending Provider on Discharge: Coral Aquino Primary Care Provider: Provider,Not a Local Condition: Unchanged Anticipated Discharge Date/Time: 10/19/21 13:25 Discharge Medications: New sodium chloride 1,000 mg Tablet,Soluble 1 g PO TIDWM Qty: 15 0RF Continued amlodipine 5 mg tablet 5 mg PO DAILY 0RF clonidine HCl 0.1 mg tablet 0.1 mg PO HS 0RF albuterol sulfate 90 mcg/actuation HFA aerosol inhaler 2 puff INHALATION Q6H [id number] Label Comments: INHALE 2 PUFFS BY MOUTH EVERY 6 HOURS carvedilol 25 mg tablet 25 mg PO BID 0RF Label Comments: TAKE 1 TABLET BY MOUTH TWICE DAILY WITH MEALS Discontinued furosemide 20 mg tablet 40 mg PO QAM 0RF furosemide 20 mg tablet 20 mg PO QPM 0RF metolazone 5 mg tablet 5 mg PO MOWEFR 0RF Label Comments: TAKE 1 TABLET BY MOUTH ONCE DAILY ON TUESDAY, TUESDAY AND TUESDAY IN THE MORNING ONLY HOLD IF WEIGHT DROPS BY 10LBS Discharge Orders: Discharge Order (Routine); Ordered 10/19/21 Ordered By: Coral Aquino Patient Education: Chronic Kidney Disease Diet (DC), Hyponatremia (DC) Activity Level: No Restrictions Discharge Diet: Renal and 1500 ml Fluid Restriction Follow Up Appointments: Provider,Not a Local [Primary Care Provider] - 10/20/21 12:45 pm ([facility] , October 22 at 9:45am [facility]) Forms: [employer] Info Instructions
--- NOTE | 2021-10-19 13:49 | PC.NURSE ---
Addendum entered by Kenyatta Azevedo RN 10/19/21 14:24: pt discharged for home at 1424 with sister. Wheelchair down to front. Discharge instructions and appointments communicated, all questions answered. IV dc'd Original Note: shift [id number] Pt sitting up in chair this shift, calm, and cooperative. 2+ bilat pitting edema of feet to mid calf. VSS, denies pain, IV right AC saline locked and asymptomatic.
[2021-10-20 21:21] LABS: Urine Osmolality 210 mOsm/kg
[2021-10-21 09:15] LABS: Sodium Urine Random* 45
== END 2021-10-19 14:20 | disposition home or self-care (01) ==
LOC: ED 18:07 → MEDSURG 22:49
PROVIDERS: Family Medicine; Admitting Provider Family Medicine; Emergency Provider Family Medicine; Visit Provider Family Medicine
DX: I12.0 Hypertensive chronic kidney disease with stage 5 chronic kidney disease or end stage renal disease (principal); N18.5 Chronic kidney disease, stage 5; D63.1 Anemia in chronic kidney disease; E87.6 Hypokalemia; E87.1 Hypo-osmolality and hyponatremia; E83.39 Other disorders of phosphorus metabolism; N25.81 Secondary hyperparathyroidism of renal origin; E87.70 Fluid overload, unspecified
CPT/HCPCS: 36415; 71045; 80048; 80051; 80053; 81001; 83735; 83880; 83930; 83935; 84100; 84132; 84295; 84300; 84484; 85018; 85025; 87635; 93005; 93306; 96360; 96374; 99285; G0378; A9270; G0379; J3480; J7120